=== PATIENT | male | born 1950 | race Hispanic/Latino ===

== ENCOUNTER → 2022-06-27 | Outpatient (CLI) | payer MEDICARE, MEDICAID ==
[2022-06-27 10:41] LABS: CARBON DIOXIDE 22.8 mmol/L (20.0-32)
== END | disposition home or self-care (01) ==
LOC: LAB 10:09
PROVIDERS: ATTEND Internal Medicine
DX: E11.9 Type 2 diabetes mellitus without complications (principal); E83.51 Hypocalcemia
CPT/HCPCS: 36415; 80053

== ENCOUNTER → 2022-06-30 | Outpatient (CLI) | payer MEDICARE, MEDICAID ==
[2022-06-30 18:44] LABS: CARBON DIOXIDE 20.1 mmol/L (20.0-32)
== END | disposition home or self-care (01) ==
LOC: NPLAB 18:19
PROVIDERS: ATTEND Internal Medicine
DX: E11.9 Type 2 diabetes mellitus without complications (principal); I50.9 Heart failure, unspecified; E83.51 Hypocalcemia
CPT/HCPCS: 36415; 80053

== ENCOUNTER → 2023-04-14 | Outpatient (CLI) | payer MEDICARE, MEDICAID ==
[2023-04-14 14:50] LABS: ALBUMIN(ML) 2.1 g/dL (3.4-5.0); ALBUMIN/GLOBULIN RATIO 0.5; ANION GAP 11.5; BUN/CREATININE RATIO 28.51 (10.0-20.0); CALCIUM 7.8 mg/dL (8.4-10.5); CARBON DIOXIDE 22.1 mmol/L (20.0-32); CREATININE SERUM 2.35 mg/dL (0.59-1.40); EST GFR, NON-AA 27.6 (>/=60); POTASSIUM 3.6 mmol/L (3.6-5.2)
[2023-04-14 15:10] LABS: BILIRUBIN,URINE NEGATIVE (NEGATIVE); LEUKOCYTE ESTERASE ,URINE NEGATIVE (NEGATIVE); NITRATE,URINE NEGATIVE (NEGATIVE); UROBILINOGEN,URINE 0.2 E.U./dL (0.2)
[2023-04-14 15:16] LABS: APPEARANCE,URINE CLEAR; UA COLOR YELLOW
== END | disposition home or self-care (01) ==
LOC: NPLAB 13:26
PROVIDERS: ATTEND Internal Medicine
DX: I12.9 Hypertensive chronic kidney disease with stage 1 through stage 4 chronic kidney disease, or unspecified chronic kidney disease (principal); I25.10 Atherosclerotic heart disease of native coronary artery without angina pectoris; N17.9 Acute kidney failure, unspecified; N18.9 Chronic kidney disease, unspecified
CPT/HCPCS: 36415; 80053; 81003; 83735; 83970; 84100